=== PATIENT | female | born 2005 | race Caucasian/White ===

== ENCOUNTER 2025-09-09 18:59 | Emergency (ER) | payer MEDICAID, OTHER ==
[~2025-09-09] VITALS: Ht 162.6 cm; Wt 75.0 kg
[2025-09-09 19:02] VITALS: BP 157/90; PULSE 98; RESP 16; O2SAT 99
[2025-09-09] MEDS: LIDOcaine 1% 30ml preserv. free vial IJ STA (21:00)
--- NOTE | 2025-09-09 21:16 | RADIOLOGY REPORT ---
CLINICAL INDICATION: poss shrapnel TECHNIQUE: Left HAND, COMPLETE (3VW MIN) Comparison: None FINDINGS/IMPRESSION: There is no evidence of acute fracture or dislocation. Soft tissues are unremarkable. No radiopaque foreign body identified.
--- NOTE | 2025-09-09 22:01 | Physician Documentation ---
History of Present Illness ~ Chief Complaint: Laceration Stated Complaint: FINGER PAIN Time Seen by MD: 20:49 HPI Patient is a very pleasant 20-year-old female that presents to the emergency department for evaluation of a small laceration to the left index finger on the lateral side. Patient reports she was getting [place] decorations out a box when she cut her finger on a small [place] decorations. X-ray was done to ensure that there are no foreign bodies retained in the laceration. Bleeding is currently controlled. No other symptoms reported at this time. Medication Reconciliation Allergies: Coded Allergies: erythromycin base (Verified Allergy, Mild, 09/09/25) Review of Systems ROS As stated above in the HPI, otherwise all systems are reviewed and negative. Physical Exam Vital Signs: Temperature: 97.6, Source: Temporal, Heart Rate: 98, Respiratory Rate: 16, BP: 157/90, Pulse Oximetry: 99, Weight: 75.000 Physical Exam VITALS: Reviewed and as above. GENERAL: Alert, no apparent distress. SKIN: Warm and dry, no rash, no laceration noted to the left index finger, bleeding is currently controlled, significant swelling or erythema noted at the site. Laceration will not require repair. NEURO: Oriented x4, No motor or sensory deficit PSYCH: Normal mood and affect, no agitation Progress Results/Orders Results/Orders Orders - HIRAL SHEEHAN [employer]ENTIALING MANAGER Hand, Complete (3vw Min) (09/09/25 20:49) Completed Orders - HIRAL SHEEHAN [employer]ENTIALING MANAGER Lidocaine 1% 30ml Vial (Xylocaine 1% Via (09/09/25 20:49) Hand, Complete (3vw Min) (09/09/25 20:49) Vital Signs 09/09/25 19:02 Temp 97.6 Pulse 98 Resp 16 B/P (MAP) 157/90 Pulse Ox 99 Medical Decision Making Additional information obtaine: other Findings Small laceration noted to the left index finger. X-rays negative for any radiopaque or foreign bodies retained within the wound. Bleeding is currently controlled wound was cleaned thoroughly dressings were reapplied pressure applied laceration will not require suture or repair at this time. Patient was sent home with a additional dressings. Patient will return if she has any signs of infection erythema abnormal drainage swelling around the site that is excessive. Fever chills nausea vomiting diarrhea patient will return. Patient will follow up with the primary care provider if she has any additional concerns or return to the emergency department with any worsening or recurrent symptoms or any additional concerning symptoms that we discussed here today. Differential Dx:Considerations: Include: Abrasion, Avulsion, Contusion, Laceration, Fracture, Hematoma, Neurovascular injury, Retained foreign body, Other Departure Disposition: HOME / SELF CARE / HOMELESS Impression: Primary Impression: Laceration Condition: Stable Discharge Instructions: Laceration Care (Skin Glue), Laceration Care, Adult, Radv-so-Evkg Additional Instructions: Small laceration noted to the left index finger. X-rays negative for any radiopaque or foreign bodies retained within the wound. Bleeding is currently controlled wound was cleaned thoroughly dressings were reapplied pressure applied laceration will not require suture or repair at this time. Patient was sent home with a additional dressings. Patient will return if she has any signs of infection erythema abnormal drainage swelling around the site that is excessive. Fever chills nausea vomiting diarrhea patient will return. Patient will follow up with the primary care provider if she has any additional concerns or return to the emergency department with any worsening or recurrent symptoms or any additional concerning symptoms that we discussed here today. Referrals: NO PRIMARY CARE PROVIDER (PCP) Education Educated: Patient Educated regarding: diagnosis, treatment, need for follow up Signature Scribe Signature: A Attestation: Scribed for Hiral Sheehan by KEVIN Recio . 09/09/25 22:00 HIRAL SHEEHAN Sep 09, 2025 22:01
[2025-09-09 22:03] VITALS: TEMP 97.6
== END 2025-09-09 22:05 | disposition home or self-care (01) ==
LOC: ER 19:00
DX: S61.211A Laceration without foreign body of left index finger without damage to nail, initial encounter (principal); Z88.1 Allergy status to other antibiotic agents; W26.9XXA Contact with unspecified sharp object(s), initial encounter; Y93.89 Activity, other specified; Y92.89 Other specified places as the place of occurrence of the external cause; Y99.8 Other external cause status
CPT/HCPCS: 73130; 96372; 99283; A6258; A6449